=== PATIENT | female | born 1975 | race Caucasian/White ===

== ENCOUNTER 2023-03-29 06:17 | Day surgery (SDC) | payer MEDICAID ==
[2023-03-22 15:01] LABS: BASOPHILS % (AUTO) 0.4 % (0-1); EOSINOPHILS # (AUTO) 0.1 X10'3 (0-0.9); EOSINOPHILS % (AUTO) 2.2 % (0-6); LYMPHOCYTES # (AUTO) 3.3 X10'3 (1.1-4.8); LYMPHOCYTES % (AUTO) 55.3 % (21-51); MEAN CORPUSCULAR HGB CONC 33.7 g/dL (33.0-36.5); MEAN CORPUSCULAR VOLUME 88.9 FL (78-98); MEAN PLATELET VOLUME 7.4 FL (7.4-10.4); MONOCYTES # (AUTO) 0.5 X10'3 (0-0.9); MONOCYTES % (AUTO) 7.8 % (2-12); NEUTROPHILS # (AUTO) 2.1 X10'3 (1.8-7.7); NEUTROPHILS % (AUTO) 34.3 % (42-75); PRE OP HEMATOCRIT 39.9 % (35.0-45.0); PRE OP HEMOGLOBIN 13.5 g/dL (12.0-16.0); PRE OP PLATELET COUNT 219 X10'3 (140-440); RED BLOOD COUNT 4.49 X10'6 (4.20-5.60); RED CELL DISTRIBUTION WIDTH 14.1 % (11.5-14.5)
[2023-03-22 15:15] LABS: ALBUMIN 3.3 G/DL (3.4-5.0); ALBUMIN/GLOBULIN RATIO 0.7 (1.1-1.5); ALKALINE PHOSPHATASE 138 IU/L (46-116); BLOOD UREA NITROGEN 9 MG/DL (7-18); BUN/CREATININE RATIO 11.1 (10.0-20.0); CALCIUM 9.1 MG/DL (8.5-10.1); CHLORIDE 101 MMOL/L (99-107); CREATININE 0.81 MG/DL (0.40-0.90); PRE OP ALT 43 U/L (30-65); PRE OP ANION GAP 10 (8-16); PRE OP AST 44 U/L (10-37); PRE OP BILIRUB, TOTAL 0.2 MG/DL (0.0-1.0); PRE OP GLUCOSE 101 MG/DL (70-104); PRE OP SODIUM 138 MMOL/L (135-145); TOTAL CARBON DIOXIDE 27.5 MMOL/L (24-32); TOTAL PROTEIN 7.8 G/DL (6.4-8.2); eGFR 76 ML/MIN
[~2023-03-29] VITALS: Ht 157.5 cm; Wt 96.0 kg
[~2023-03-29 06:17] MED LIST: AMIT10TA6 PO; BOTOX TD; CETI10TA14 PO; CYCL5TAB PO; DIVA500T9 PO; ERGO500093 PO; FLUO-167 PO; PRIM250T8 PO; cefazolin 2gm/D5W 100mL 100 ML IV ONE; famotidine 20mg tablet PO ONE
[2023-03-29 07:00] VITALS: BP 142/77; PULSE 81; RESP 16; TEMP 96.7; O2SAT 99
--- NOTE | 2023-03-29 07:26 | NUR ---
REC'D ORDER FROM DR LEIVA FOR 2 GM ANCEF IV ONCE
[2023-03-29] MEDS ORDERED: LIDOcaine 0.5% (5mg/ml) 50ml vial ONE (07:32)
[2023-03-29] MEDS ORDERED: OMEP40CA21 PO (07:43)
[2023-03-29] MEDS: ringers solution, lacted 1,000 ML IV SCH ×2 (07:54→10:56)
[2023-03-29] MEDS ORDERED: BUPIVAcaine/PF 2.5mg/ml (0.25%) 10ml vial ONE (09:54)
[2023-03-29] MEDS ORDERED: fentaNYL/PF 50MCG/1 ML 2ML syringe ONE (09:58)
[2023-03-29] MEDS ORDERED: midazolam 1 mg/ML 2ml injection ONE (09:59)
[2023-03-29] MEDS ORDERED: ketamine 50mg/5ml syringe ONE (10:22)
[2023-03-29] MEDS ORDERED: BUPIVAcaine/PF 2.5mg/ml (0.25%) 10ml vial IJ ONE (10:30)
[2023-03-29] MEDS ORDERED: diphenhydrAMINE 50 mg/ml inj ONE (10:34)
[2023-03-29 10:45] VITALS: BP 119/74; PULSE 84; RESP 14; O2SAT 97
--- NOTE | 2023-03-29 10:54 | NUR ---
RECEIVED PATIENT FROM OR VIA [facility], REPORT GIVEN BY DR. KEYS. RIGHT WRIST DRESSING CDI. LEFT WRIST 20G PIV WITH LR RUNNING AT 100ML/HR. DENIES PAIN. VSS. AWAKE AND ALERT. Addendum: 03/29/23 at 1056 by Tram Zarco RN LR RUNNING AT 20ML/HR
[2023-03-29 10:55] VITALS: BP 123/81; PULSE 79; RESP 16; O2SAT 96
--- NOTE | 2023-03-29 11:30 | NUR ---
PATIENT MEETS DISCHARGE CRITERIA. INSTRUCTIONS REVIEWED WITH PATIENT. COPY GIVEN TO PATIENT. PATIENT PICKED UP BY FATHER VIA PERSONAL VEHICLE.
[2023-03-29 11:32] VITALS: BP 115/70; PULSE 79; RESP 13; O2SAT 97
== END 2023-03-29 11:30 | disposition home or self-care (01) ==
LOC: PAS 06:17
PROVIDERS: ATTEND Orthopaedic Surgery Hand Surgery
DX: G56.01 Carpal tunnel syndrome, right upper limb (principal); M65.311 Trigger thumb, right thumb; G47.33 Obstructive sleep apnea (adult) (pediatric); E66.9 Obesity, unspecified; Z68.38 Body mass index [BMI] 38.0-38.9, adult; G43.709 Chronic migraine without aura, not intractable, without status migrainosus; G25.0 Essential tremor; M54.32 Sciatica, left side; F41.9 Anxiety disorder, unspecified; G40.909 Epilepsy, unspecified, not intractable, without status epilepticus; F17.210 Nicotine dependence, cigarettes, uncomplicated; Z88.5 Allergy status to narcotic agent; Z88.2 Allergy status to sulfonamides; Z79.899 Other long term (current) drug therapy; Z90.710 Acquired absence of both cervix and uterus; Z98.890 Other specified postprocedural states
CPT/HCPCS: 26055; 29848; 80053; 82948; 85025; J0690; J1200; J2250; J3010; J3490; J7030; J7120; Z7506; Z7512; A4215; A6449; A7000

== ENCOUNTER 2023-04-26 09:22 | Day surgery (SDC) | payer MEDICAID ==
[2023-04-20 10:58] LABS: BASOPHILS % (AUTO) 0.4 % (0-1); EOSINOPHILS # (AUTO) 0.1 X10'3 (0-0.9); EOSINOPHILS % (AUTO) 1.8 % (0-6); LYMPHOCYTES # (AUTO) 2.8 X10'3 (1.1-4.8); LYMPHOCYTES % (AUTO) 51.9 % (21-51); MEAN CORPUSCULAR HEMOGLOBIN 29.8 PG (27.0-31.0); MEAN CORPUSCULAR HGB CONC 33.6 g/dL (33.0-36.5); MEAN CORPUSCULAR VOLUME 88.6 FL (78-98); MEAN PLATELET VOLUME 7.9 FL (7.4-10.4); MONOCYTES # (AUTO) 0.5 X10'3 (0-0.9); MONOCYTES % (AUTO) 8.8 % (2-12); NEUTROPHILS % (AUTO) 37.1 % (42-75); PRE OP HEMATOCRIT 37.9 % (35.0-45.0); PRE OP HEMOGLOBIN 12.8 g/dL (12.0-16.0); PRE OP PLATELET COUNT 201 X10'3 (140-440); PRE OP WHITE BLOOD COUNT 5.4 10'3 (4.8-10.8); RED BLOOD COUNT 4.28 X10'6 (4.20-5.60); RED CELL DISTRIBUTION WIDTH 14.7 % (11.5-14.5)
[2023-04-20 11:00] LABS: ALBUMIN 3.3 G/DL (3.4-5.0); ALBUMIN/GLOBULIN RATIO 0.8 (1.1-1.5); ALKALINE PHOSPHATASE 140 IU/L (46-116); BLOOD UREA NITROGEN 7 MG/DL (7-18); BUN/CREATININE RATIO 9.9 (10.0-20.0); CALCIUM 9.3 MG/DL (8.5-10.1); CHLORIDE 103 MMOL/L (99-107); CREATININE 0.71 MG/DL (0.40-0.90); PRE OP ALT 43 U/L (30-65); PRE OP ANION GAP 8 (8-16); PRE OP AST 46 U/L (10-37); PRE OP BILIRUB, TOTAL 0.1 MG/DL (0.0-1.0); PRE OP GLUCOSE 137 MG/DL (70-104); PRE OP POTASSIUM 4.3 MMOL/L (3.4-5.1); PRE OP SODIUM 138 MMOL/L (135-145); TOTAL CARBON DIOXIDE 26.8 MMOL/L (24-32); TOTAL PROTEIN 7.5 G/DL (6.4-8.2); eGFR 88 ML/MIN
[~2023-04-26] VITALS: Ht 157.5 cm; Wt 97.5 kg
[~2023-04-26 09:22] MED LIST changes: +BUPIVAcaine/PF 2.5mg/ml (0.25%) 10ml vial ONE; -ERGO500093 PO; +OMEP40CA21 PO; +ringers solution, lacted 1,000 ML IV SCH
[2023-04-26 09:25] VITALS: BP 126/79; PULSE 89; RESP 16; TEMP 97.4; O2SAT 97
[2023-04-26] MEDS ORDERED: meperidine/PF 25mg/ml syringe IV PRN ×3 (09:45)
[2023-04-26] MEDS ORDERED: proCHLORperazine 10 MG/2 ml inj IV PRN (09:45)
[2023-04-26] MEDS ORDERED: ondansetron/PF 4mg/2ml inj IV PRN (09:45)
[2023-04-26] MEDS ORDERED: ringers solution, lacted 1,000 ML IV SCH (09:45)
[2023-04-26] MEDS ORDERED: fentaNYL/PF 50MCG/1 ML 2ML syringe ONE (09:58)
[2023-04-26] MEDS ORDERED: midazolam 1 mg/ML 2ml injection ONE (09:58)
[2023-04-26] MEDS ORDERED: LIDOcaine 0.5% (5mg/ml) 50ml vial ONE (10:03)
[2023-04-26] MEDS ORDERED: propofol inj 20 ML IV ONE (10:04)
[2023-04-26 10:36] VITALS: BP 116/73; PULSE 89; RESP 14; O2SAT 97
--- NOTE | 2023-04-26 10:36 | NUR ---
Received from OR via [facility] , accompanied by Anesthesiologist DR HSIEH and report given by Anesthesiolgist. PT PRESENT SWITH 20G RUGHT HAND, SPO2 97 ROOM AIR, LR RUNNING AT 100MLS/HR LEFT HAND DRERSSING AGUSTIN, VSS. Addendum: 04/26/23 at 1045 by Alana Torres RN, RN Amended: Links added.
[2023-04-26 10:50] VITALS: BP 112/70; PULSE 95; RESP 20; O2SAT 94
[2023-04-26 11:00] VITALS: BP 109/88; PULSE 84; RESP 16; O2SAT 95
[2023-04-26 11:10] VITALS: BP 106/89; PULSE 82; RESP 16; O2SAT 95
[2023-04-26 11:26] VITALS: BP 106/89; PULSE 82; RESP 16; O2SAT 95
--- NOTE | 2023-04-26 11:26 | NUR ---
ABLE TO SAFELY AMBULATE AND TRANSFER SELF. IV TAKEN OUT WITHOUT ANY COMPLICATIONS. ALL DISCHARGE INSTRUCTIONS COVERED WITH PATIENT AND ALL QUESTIONS ANSWERED. PATIENT TAKEN OUT VIA WHEELCHAIR TO PERSONAL VEHICLE WHERE FAMILY/FRIEND DROVE PATIENT HOME. Addendum: 04/26/23 at 1133 by Alana Torres RN, RN Amended: Links added.
== END 2023-04-26 11:26 | disposition home or self-care (01) ==
LOC: PAS 09:22
PROVIDERS: ATTEND Orthopaedic Surgery Hand Surgery
DX: G56.02 Carpal tunnel syndrome, left upper limb (principal); G43.709 Chronic migraine without aura, not intractable, without status migrainosus; M54.41 Lumbago with sciatica, right side; M46.1 Sacroiliitis, not elsewhere classified; G47.30 Sleep apnea, unspecified; F41.9 Anxiety disorder, unspecified; E66.9 Obesity, unspecified; Z68.38 Body mass index [BMI] 38.0-38.9, adult; F17.210 Nicotine dependence, cigarettes, uncomplicated; F32.A Depression, unspecified; G25.0 Essential tremor; Z90.710 Acquired absence of both cervix and uterus; Z88.5 Allergy status to narcotic agent; Z88.2 Allergy status to sulfonamides; Z79.899 Other long term (current) drug therapy
CPT/HCPCS: 29848; 80053; 82948; 85025; 93005; J0690; J2250; J2704; J3010; J3490; J7030; J7120; Z7506; Z7512; A4215; A7000